=== PATIENT | female | born 1935 | race Caucasian/White ===

== ENCOUNTER → 2021-06-23 10:36 | Outpatient (BNVA) | payer MEDICARE, SELFPAY | PROVIDERS: PCP Internal Medicine; Visit Provider Nurse Practitioner Family | DX: I69.354 Hemiplegia and hemiparesis following cerebral infarction affecting left non-dominant side (principal); F01.51 Vascular dementia, unspecified severity, with behavioral disturbance | CPT/HCPCS: 99212 ==

== ENCOUNTER → 2021-12-22 10:49 | Outpatient (BNVA) | payer MEDICARE, SELFPAY | PROVIDERS: PCP Internal Medicine; Visit Provider Nurse Practitioner Family | DX: I69.354 Hemiplegia and hemiparesis following cerebral infarction affecting left non-dominant side (principal); F01.518 Vascular dementia, unspecified severity, with other behavioral disturbance; R05.9 Cough, unspecified | CPT/HCPCS: 99212 ==

== ENCOUNTER → 2022-06-22 11:00 | Outpatient (BNVA) | payer MEDICARE, SELFPAY | PROVIDERS: PCP Internal Medicine; Visit Provider Nurse Practitioner Family | DX: M79.10 Myalgia, unspecified site (principal); I69.354 Hemiplegia and hemiparesis following cerebral infarction affecting left non-dominant side; R05.9 Cough, unspecified; F01.511 Vascular dementia, unspecified severity, with agitation | CPT/HCPCS: 99212 ==

== ENCOUNTER 2022-12-29 10:40 | Outpatient (AMB) | payer MEDICARE, SELFPAY ==
--- NOTE | 2022-12-29 10:52 | MHC.OFFVIS ---
Intake Vital Signs 12/29/22 11:29 BP 98/82 Blood Pressure Location Rt brachial Position Sitting Pulse 58 Pulse Source Pulse Oximeter Pulse Oximetry (%) 96 Oxygen Delivery Method Room Air Intake Visit Reasons: 6m follow up stroke-confirmed Intake Note: Patient presents for 6 month follow up. Patient states theres a few concerns i brought a paper. Allergies amlodipine [From Norvasc] Allergy (Verified 12/29/22 11:23) Unknown lisinopril Allergy (Verified 12/29/22 11:23) Unknown risperidone [From Risperdal] Allergy (Verified 12/29/22 11:23) Unknown montelukast [From Singulair] Adverse Reaction (Verified 12/29/22 11:23) Agitated zaire luis felipeon Adverse Reaction (Mild, Uncoded 12/29/22 11:23) Nausea and Vomiting Medication List - Last Reconciled 12/29/22 by KRYSTA Mays acetaminophen (Tylenol Extra Strength) 1,000 mg PO BID amiodarone 100 mg PO DAILY amlodipine 5 mg PO QAM apixaban (Eliquis) 5 mg PO BID calcium carbonate (Tums) 750 mg PO DAILY calcium carbonate (Tums) 300 mg PO BID carboxymethylcellulose sodium 0.5% (Refresh Tears) 1 drp ophthalmic (eye) TID carvedilol 3.125 mg PO BID cholecalciferol (vitamin D3) 1,000 units PO DAILY cranberry fruit concentrate (Azo Cranberry) 25,000 mg PO DAILY ketotifen fumarate 0.025%(0.035%) 1 drp ophthalmic (eye) DAILY latanoprost 0.005% 1 drp ophthalmic (eye) BEDTIME levothyroxine 50 mcg PO DAILY losartan 50 mg PO BID memantine 28 mg PO DAILY 30 days methylcellulose (laxative) (Fiber Laxative (methylcellulose)) 500 mg PO DAILY propylene glycol 0.6% (Systane Balance) 1 drp ophthalmic (eye) DAILY PRN rosuvastatin 5 mg orally M,W,F; vitamin H-nbloiyytdkty-ntdzikm 500 mg (Emergen-C) 2 tabs PO DAILY HPI HPI Comments History of Present Illness Details 87-yr-old female presents for f/u visit, accompanied by her 2 dtrs. Pt denies any significant interval medical changes. Pt still lives ta home. Dtrs note she is needing more cueing. For instance, may forget how to hold her cup or use her spoon. She is having a bit more difficultly eating, say with eating chexmix w/ milk- dtr needed to allow the cereal to soak into the milk. May be distracted while eating by the TV being on (her likes to keep the TV on) She had a recent episode of refusing to get OOB, was punching and resisting. Family wonders if it was the caregiver's approach or if she was constipated. She had a period of urinary frequency which resolved w/ taking 100% cranberry juice. She can be prone to constipation, sometimes no BM x's 5 days. Familu uses fluids, stool softener, fiber as needed. PFSH Surgical History History of knee replacement History of hip surgery Hx of hysterectomy Hx of cholecystectomy Family History Mother Diabetes Social History Household Members: Spouse Household Members Other:: 27/09 care Alcohol intake: current Alcohol intake frequency: does not drink Patient Tobacco Use Status: Never used Tobacco Review of Systems Const All systems reviewed & are unremarkable except as noted in HPI and below Physical Exam Vital Signs: Last Vital Signs Pulse 58 12/29/22 11:29 BP 98/82 12/29/22 11:29 Pulse Ox 96 12/29/22 11:29 Oxygen Delivery Method Room Air 12/29/22 11:29 Const General: cooperative and no acute distress HEENT Head: Yes normocephalic Resp Effort & Inspection: normal respiratory effort and able to speak in complete sentences Neuro Other: Pt alert, but does doze off during the visit, eaisly aroused. Oriented to her dtr's. Left lower facial weakness Mild dysarthria speech. Left hemiparesis. Sitting upright in w/c. Psych Appearance: grossly normal Affect: normal affect Attitude: cooperative Assessment & Plan Assessment & Plan (1) Vascular dementia with behavior disturbance: Code(s): F01.51 - Vascular dementia, unspecified severity, with behavioral disturbance (2) Hemiparesis affecting left side as late effect of cerebrovascular accident (CVA): Comment: Stroke in 2014 and Dec 2016. Right thalamic infarction, a small left thalamic and Right brainstem infarction. A-fib. Left hemiparesis and Right eye 3rnd nerve palsy/proptosis. Code(s): I69.354 - Hemiplegia and hemiparesis following cerebral infarction affecting left non-dominant side Plan Continue safe swallowing strategies- chin tuck, double swallow, thickened liquids, not talking w/ eating, no TV while eating. Continue supportive care. Continue Namenda XR 28mg qd. Continue fiber tabs qd. Add senna 8.6mg 1-2 tabs or MOM 30ml prn no BM > 3 days. Continue PT/OT exercises and encouraging pt to be as independent as possible (such as self-feeding). Future considerations- urology consult for urinary frequency s/s. f/u in 6 months or sooner prn. Medications: Refilled memantine 28 mg PO DAILY 30 days 30 caps 6RF Coding Level of Care Code Est Pt Level 4 (66374) Diagnoses Vascular dementia with behavior disturbance F01.51 Hemiparesis affecting left side as late effect of cerebrovascular accident (CVA) I69.354
[2022-12-29 11:29] VITALS: BP 98/82; PULSE 58; O2SAT 96
== END 2022-12-29 12:06 | disposition home or self-care (01) ==
PROVIDERS: Visit Provider Nurse Practitioner Family
DX: F01.518 Vascular dementia, unspecified severity, with other behavioral disturbance (principal); I69.354 Hemiplegia and hemiparesis following cerebral infarction affecting left non-dominant side
CPT/HCPCS: 99214

== ENCOUNTER → 2022-12-29 10:40 | Outpatient (BNVA) | payer MEDICARE, SELFPAY | PROVIDERS: Visit Provider Nurse Practitioner Family | DX: I69.354 Hemiplegia and hemiparesis following cerebral infarction affecting left non-dominant side (principal); F01.518 Vascular dementia, unspecified severity, with other behavioral disturbance | CPT/HCPCS: 99212 ==

== ENCOUNTER 2023-06-28 11:53 | Outpatient (AMB) | payer MEDICARE, SELFPAY ==
--- NOTE | 2023-06-28 11:37 | MHC.OFFVIS ---
Intake Visit Reasons: 6m follow up stroke(#[phone])-CONF Intake Note: Patient present 6 months f/u. pt. is declining Allergies amlodipine [From Norvasc] Allergy (Verified 06/28/23 11:40) Unknown lisinopril Allergy (Verified 06/28/23 11:40) Unknown risperidone [From Risperdal] Allergy (Verified 06/28/23 11:40) Unknown montelukast [From Singulair] Adverse Reaction (Verified 06/28/23 11:40) Agitated zaire suarez Adverse Reaction (Mild, Uncoded 12/29/22 11:23) Nausea and Vomiting Medication List - Last Reconciled 06/28/23 by KRYSTA Mays acetaminophen (Tylenol Extra Strength) 1,000 mg PO BID amiodarone 100 mg PO DAILY amlodipine 5 mg PO QAM apixaban (Eliquis) 5 mg PO BID calcium carbonate (Tums) 750 mg PO DAILY calcium carbonate (Tums) 300 mg PO BID carboxymethylcellulose sodium 0.5% (Refresh Tears) 1 drp ophthalmic (eye) TID carvedilol 3.125 mg PO BID cholecalciferol (vitamin D3) 1,000 units PO DAILY cranberry fruit concentrate (Azo Cranberry) 25,000 mg PO DAILY ketotifen fumarate 0.025%(0.035%) 1 drp ophthalmic (eye) DAILY latanoprost 0.005% 1 drp ophthalmic (eye) BEDTIME levothyroxine 50 mcg PO DAILY losartan 50 mg PO BID memantine 28 mg PO DAILY 30 days methylcellulose (laxative) (Fiber Laxative (methylcellulose)) 500 mg PO DAILY propylene glycol 0.6% (Systane Balance) 1 drp ophthalmic (eye) DAILY PRN rosuvastatin 5 mg orally M,W,F; vitamin V-pbsaeapepzmq-qtjfean 500 mg (Emergen-C) 2 tabs PO DAILY HPI Comments Details: 87-yr-old female presents for f/u televideo visit via [employer]. Accompanied by her dtrs. Pt had a COVID-19 infection in Feb. Pt has been having a gradual decline. 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 After family started noticing increased phlegm accumulation, once her aide to manually remove the phlegm. She also was forgetting to chew and swallow at times. They have avoided giving her milk and dairy products. DENTAL ASSISTANT INSTRUCTOR was advised to change to pureed or minced diet depending on her alertness level. Family feels she is eating better than before. DENTAL ASSISTANT INSTRUCTOR was also questioning if pt has GERD- d/t prone to burping after drinking. Family is needing to feed her more. She is forgetting what to do with her cup, how to drink. She is more incontinent. Still using the commode- when prompted by family. No skin breakdown. She can easily become constipation- maybe better on pureed diets as she is able to eat more fruits and vegetables, in addition to her bowel regimen- colace qod, fiber gummie qod. Senna was too effective. When constipated, pt's mood is worse. Doing PT 3 x's per week. Doing some hand exercises, standing up exercises, PFSH Surgical History History of knee replacement History of hip surgery Hx of hysterectomy Hx of cholecystectomy Family History Mother Diabetes Social History Household Members: Spouse Household Members Other:: 27/09 care Alcohol intake: current Alcohol intake frequency: does not drink Patient Tobacco Use Status: Never used Tobacco Physical Exam Const General: cooperative and no acute distress Resp Effort & Inspection: normal respiratory effort Neuro Other: Alert, verbal, w/ disorientation, responds to simple questions appropriately. Sitting up in w/c. Left lower facial weakness Mild dysarthria speech. Left hemiparesis. Sitting upright in w/c. Psych Appearance: grossly normal Affect: normal affect Attitude: cooperative Telehealth Telehealth Telehealth Platform: [employer] Location of provider rendering services: practice address Location of patient: address on file Patient Identification confirmed using: Name, : Yes Telehealth method: video Patient verbally consented to treatment: Yes Patient verbally consented to billing insurance company: Yes Patient informed of any privacy concerns related to visit: Yes Minutes spent on Phone/Video with Pt.: 25 Assessment & Plan Assessment & Plan (1) Hemiparesis affecting left side as late effect of cerebrovascular accident (CVA): Comment: Stroke in 2014 and Dec 2016. Right thalamic infarction, a small left thalamic and Right brainstem infarction. A-fib. Left hemiparesis and Right eye 3rnd nerve palsy/proptosis. Code(s): I69.354 - Hemiplegia and hemiparesis following cerebral infarction affecting left non-dominant side Category: Medical (2) Dysphagia: Code(s): R13.10 - Dysphagia, unspecified Category: Medical (3) Choking due to phlegm in larynx: Code(s): T17.310A - Gastric contents in larynx causing asphyxiation, initial encounter Category: Medical Plan May use Mucinex prn for thickened phlegm. Pt would benefit from having a suction machine at bedside, as pt cannot always self-clear her own thickened laryngeal phlegm/secretions d/t dysphagia, cognitive impairment d/t h/o CVA and dementia. Order written. Continue safe swallowing strategies- chin tuck, double swallow, thickened liquids, not talking w/ eating, no TV while eating. Continue supportive care. Continue Namenda XR 28mg qd. Continue bowel regimen. Monitor burping- ? r/t constipation more so than GERD- family denies pt c/o epigastric or upper back discomfort, reflux. Continue DENTAL ASSISTANT INSTRUCTOR/PT/OT exercises. f/u in 6 months or sooner prn. Medications: New Portable Suction Machine w/tubing,canister&filter (Suction machine w/tubing, canister and filter) As directed 1 ea 0RF I69.354 - Hemiplegia and hemiparesis following cerebral infarction affecting left non-dominant side, R13.10 - Dysphagia, unspecified, T17.310A - Gastric contents in larynx causing asphyxiation, initial encounter Portable Suction Machine w/tubing,canister&filter (Suction machine w/tubing, canister and filter) As directed 1 ea 0RF I69.354 - Hemiplegia and hemiparesis following cerebral infarction affecting left non-dominant side, R13.10 - Dysphagia, unspecified, T17.310A - Gastric contents in larynx causing asphyxiation, initial encounter Changed From memantine 28 mg PO DAILY 30 days 30 caps 6RF To memantine 28 mg PO DAILY 90 days 90 caps 3RF Coding Level of Care Code Tele Est Pt Level 4 (49526) Diagnoses Hemiparesis affecting left side as late effect of cerebrovascular accident (CVA) I69.354 Dysphagia R13.10 Choking due to phlegm in larynx T17.310A
== END 2023-06-28 16:08 | disposition home or self-care (01) ==
LOC: HO.HSMS 11:53
PROVIDERS: PCP Internal Medicine; Visit Provider Nurse Practitioner Family
DX: I69.354 Hemiplegia and hemiparesis following cerebral infarction affecting left non-dominant side (principal); R13.10 Dysphagia, unspecified; T17.310A Gastric contents in larynx causing asphyxiation, initial encounter
CPT/HCPCS: 99214

== ENCOUNTER → 2023-06-28 11:53 | Outpatient (BNVA) | payer MEDICARE, SELFPAY | PROVIDERS: PCP Internal Medicine; Visit Provider Nurse Practitioner Family | DX: M79.10 Myalgia, unspecified site (principal) ==

== ENCOUNTER 2024-01-04 11:43 | Outpatient (AMB) | payer MEDICARE, SELFPAY ==
--- NOTE | 2024-01-04 11:44 | MHC.OFFVIS ---
Intake Visit Reasons: 6 Month F/U Allergies amlodipine [From Norvasc] Allergy (Verified 01/04/24 11:44) Unknown lisinopril Allergy (Verified 01/04/24 11:44) Unknown risperidone [From Risperdal] Allergy (Verified 01/04/24 11:44) Unknown montelukast [From Singulair] Adverse Reaction (Verified 01/04/24 11:44) Agitated zaire luis felipeon Adverse Reaction (Mild, Uncoded 01/04/24 11:44) Nausea and Vomiting Medication List - Last Reconciled 01/04/24 by KRYSTA Mays acetaminophen (Tylenol Extra Strength) 1,000 mg PO BID amiodarone 100 mg PO DAILY apixaban (Eliquis) 5 mg PO BID calcium carbonate (Tums) 750 mg PO DAILY calcium carbonate (Tums) 300 mg PO BID carboxymethylcellulose sodium 0.5% (Refresh Tears) 1 drp ophthalmic (eye) TID carvedilol 3.125 mg PO BID cholecalciferol (vitamin D3) 1,000 units PO DAILY cranberry fruit concentrate (Azo Cranberry) 25,000 mg PO DAILY ketotifen fumarate 0.025%(0.035%) 1 drp ophthalmic (eye) DAILY latanoprost 0.005% 1 drp ophthalmic (eye) BEDTIME levothyroxine 50 mcg PO DAILY losartan 50 mg PO BID memantine 28 mg PO DAILY 90 days methylcellulose (laxative) (Fiber Laxative (methylcellulose)) 500 mg PO DAILY Portable Suction Machine w/tubing,canister&filter (Suction machine w/tubing, canister and filter) As directed propylene glycol 0.6% (Systane Balance) 1 drp ophthalmic (eye) DAILY PRN rosuvastatin 5 mg orally M,W,F; vitamin O-gisijxlydimu-cwgtptz 500 mg (Emergen-C) 2 tabs PO DAILY HPI Comments Details: 88-yr-old female presents for f/u televideo visit via [employer]. Accompanied by her dtrs. Pt was having episodes of hypotension/low BP, so amlodipine was d/c'd- since BP has been WNL. Recent eye exam- pressure stable. Pt continues to have gradual decline. Having episodes of increased phlegm accumulation. Using Mucinex prn which they feel helps. They are generally avoiding dairy and breads. Continues on pureed or minced diet depending on her alertness level. Still eating better since starting on better on pureed diets as she is able to eat more fruits and vegetables She requires cueing while eating. One dtr feeds her, the other dtr tries to encourage self-feeding if able. She is forgetting what to do with her cup, how to drink. She is more incontinent of both B&B. Still using the commode- when prompted by family. No skin breakdown- using barrier cream. Constipation is currently better managed- maybe , in addition to her bowel regimen- colace every 3rd day, fiber tab and prune plus extra fruits qam. When constipated or gassy, pt's mood is worse. Generally more tired. If she needs to sleep in they allow this. Pt denies pain- but dtr's note some muscle discomfort and arthritic pain- managing w/ biofreeze, patches. Using a Norma lift for transfers. Doing PT 2 x's per week. Also does almost 30 minutes of stationary peddler a day. PFSH Surgical History History of knee replacement History of hip surgery Hx of hysterectomy Hx of cholecystectomy Family History Mother Diabetes Social History Household Members: Spouse Household Members Other:: 27/09 care Alcohol intake: current Alcohol intake frequency: does not drink Patient Tobacco Use Status: Never used Tobacco Physical Exam Const General: cooperative and no acute distress Resp Effort & Inspection: normal respiratory effort Neuro Other: Alert, verbal, w/ disorientation, responds to simple questions appropriately. Sitting up in w/c. Left lower facial weakness Mild dysarthria speech. Left hemiparesis. Sitting upright in w/c. Psych Appearance: grossly normal Affect: normal affect Attitude: cooperative Telehealth Telehealth Telehealth Platform: [facility] Location of provider rendering services: practice address Location of patient: address on file Patient Identification confirmed using: Name, : Yes Telehealth method: video Patient verbally consented to treatment: Yes Patient verbally consented to billing insurance company: Yes Patient informed of any privacy concerns related to visit: Yes Minutes spent on Phone/Video with Pt.: 21 Assessment & Plan Assessment & Plan (1) Hemiparesis affecting left side as late effect of cerebrovascular accident (CVA): Comment: Stroke in 2014 and Dec 2016. Right thalamic infarction, a small left thalamic and Right brainstem infarction. A-fib. Left hemiparesis and Right eye 3rnd nerve palsy/proptosis. Code(s): I69.354 - Hemiplegia and hemiparesis following cerebral infarction affecting left non-dominant side Category: Medical (2) Dysphagia: Code(s): R13.10 - Dysphagia, unspecified Category: Medical (3) Vascular dementia with behavior disturbance: Code(s): F01.51 - Vascular dementia, unspecified severity, with behavioral disturbance Category: Medical Plan Continue supportive care. May use Mucinex prn for thickened phlegm. Continue safe swallowing strategies- purreed/minced foods w/ thickened liquids (avoid fresh/soft breads), chin tuck, double swallow, not talking w/ eating, no TV while eating. Continue Namenda XR 28mg qd. Continue bowel regimen. Continue routine toileting, skin crae. Continue regular cognitive, social, and physical stimualting activities. CHIN STRAP CUTTER/PT/OT exercises. f/u in 9 months or sooner prn. Medications: New guaifenesin ER (Mucinex) 600 mg PO Q12H 30 days PRN 60 tabs 6RF congestion Coding Level of Care Code Tele Est Pt Level 4 (42742) Diagnoses Hemiparesis affecting left side as late effect of cerebrovascular accident (CVA) I69.354 Dysphagia R13.10 Vascular dementia with behavior disturbance F01.51
== END 2024-01-04 13:18 | disposition home or self-care (01) ==
LOC: HO.HSMS 11:43
PROVIDERS: PCP Internal Medicine; Visit Provider Nurse Practitioner Family
DX: I69.354 Hemiplegia and hemiparesis following cerebral infarction affecting left non-dominant side (principal); I69.321 Dysphasia following cerebral infarction; F01.518 Vascular dementia, unspecified severity, with other behavioral disturbance
CPT/HCPCS: 99214